=== PATIENT | male | born 1940 | race Hispanic/Latino ===

== ENCOUNTER 2021-07-11 06:23 | Observation (INO) | payer MEDICARE ==
[2021-07-11 07:26] LABS: Basophils # (Auto) 0.1 K/mm3 (0.0-0.1); Basophils % (Auto) 0.8 % (0.0-1.8); Eosinophils # (Auto) 0.3 K/mm3 (0.0-0.4); Eosinophils % (Auto) 4.5 % (0.0-4.3); Hematocrit 41.3 % (35.5-45.6); Hemoglobin 12.8 gm/dl (11.8-15.2); Lymphocytes # (Auto) 1.9 K/mm3 (1.2-5.4); Lymphocytes % (Auto) 25.9 % (13.4-35.0); Mean Corpuscular HGB Conc 31 % (32-34); Mean Corpuscular Volume 82 fl (84-94); Monocytes # (Auto) 0.7 K/mm3 (0.0-0.8); Monocytes % (Auto) 9.9 % (0.0-7.3); Platelet Count 310 K/mm3 (140-440); Red Blood Count 5.02 M/mm3 (3.65-5.03); Red Cell Distribution Width 15.1 % (13.2-15.2)
[2021-07-11 07:35] LABS: BUN/Creatinine Ratio 22; Blood Urea Nitrogen 20 mg/dL (9-20); Calcium 9.6 mg/dL (8.4-10.2); Hemolysis Index 2; INR 0.94 (0.87-1.13)
[2021-07-11 07:36] LABS: Partial Thromboplastin Time 32.5 Sec. (24.2-36.6)
[2021-07-11] MEDS ORDERED: HEPARIN/NS 5000 UNIT/500ML 1,000 ML IR ONE (08:06)
[2021-07-11] MEDS ORDERED: NITROGLYCERIN SYRINGE 3 ML ONE (08:06)
[2021-07-11] MEDS: MIDAZOLAM 2 MG/2 ML INJ ONE ×2 (08:30→09:15)
[2021-07-11] MEDS: LIDOCAINE (2%) 20 MG/1 ML VIAL 20 ML MDV INFILTRATI ONE ×2 (08:31→09:16)
[2021-07-11] MEDS: fentaNYL 100 MCG/2 ML INJ ONE ×2 (08:31→09:14)
[2021-07-11] MEDS: HEPARIN 10,000 UNITS/10 ML VIAL ONE ×3 (08:32→09:28)
[2021-07-11] MEDS: VERAPAMIL 5 MG/2 ML INJ ONE ×2 (08:32→09:17)
[2021-07-11] MEDS: SODIUM CHLORIDE 0.9% 500 ML 500 ML IV SCH ×2 (08:33→08:40)
[2021-07-11] MEDS ORDERED: ALUM-MAG HYDROXIDE-SIMETHICONE 200-200-20MG/5ML ORAL LIQD 30 ML ONE (09:31)
[2021-07-11] MEDS ORDERED: CLOPIDOGREL 300 MG TAB ONE (09:31)
[2021-07-11] MEDS ORDERED: HYDROcodone/ACETAMINOPHEN 5-325 MG TAB PO PRN (10:54)
[2021-07-11] MEDS ORDERED: ACETAMINOPHEN 325 MG TAB PO PRN (10:54)
--- NOTE | 2021-07-11 11:01 | Cardiac Catherization Report ---
DATE OF SERVICE: 07/11/2021 LEFT HEART CATHETERIZATION, INTRAVASCULAR ULTRASOUND AND PERCUTANEOUS BALLOON ANGIOPLASTY CLINICAL INFORMATION: An 81-year-old gentleman with shortness of breath with exertion with cardiac PET reveals moderate inferior wall ischemia. Has hyperlipidemia, intolerant to beta blockers or nitrates. Here for a left heart cath for persistent symptoms. Procedure was done with moderate sedation, started at 9:15, finished at 9:55, 40 minutes of moderate sedation. DESCRIPTION OF PROCEDURE: Procedure was done via the right radial artery, sterile technique and local anesthesia. A 6-Ethiopian radial sheath inserted. Left system engaged with JL3.5 catheter. Left main is large and patent with mild luminal irregularities. LAD is a medium caliber vessel, is patent; proximally to mid is patent. Mid to distal has a smooth 20% lesion. Diagonal 1 is a small to medium caliber vessel with multiple branches, are patent. Diagonal 2 is a small to medium caliber vessel that has a mid 70% lesion. Circumflex is medium caliber vessel, proximal is patent and bifurcates into an OM1, has an ostial 60%. After OM1, there is a focal 80% calcified lesion in the [place] circ. AV groove, a small to medium caliber vessels in both vessels. RCA engaged with JR4, is a large, dominant vessel. Proximal right has a focal 95% lesion, large, dominant vessel; mid to distal patent. PDA, PLV are large caliber vessels, are patent with multiple branches. LV gram done in SLOVENIAN and DRAKE view shows normal LV function. LVEDP 21 mmHg, LV is 127, aortic is 127/79. No gradient across the aortic valve on pullback. The 5-Ethiopian catheters, all taken over a guidewire. Percutaneous coronary intervention of right coronary artery: 1. Engaged the RCA with a 6-Ethiopian JR4 guiding catheter. 2. Crossed short [place] wire and ballooned with 2.5 x 12 balloon x 2 inflations. The lesion ballooned, opened easily. Unable to place an intravascular ultrasound. Used a nehemias wire with an awl star. Unable to do the intravascular ultrasound, just proximal suction noted. 3. Using the nehemias technique and deep guide placement, unable to place 4.0 x 18 stent despite multiple events, removed wires and stent, no dissection, continued JILLIAN 3 flow, reduced stenosis to 80%. A 6-Ethiopian guiding catheter taken over a guidewire. A 6-Ethiopian radial sheath was discontinued. Radial band applied. No hematoma, no bleeding. SUMMARY: Unsuccessful stenting of the proximal RCA. Balloon with a 2.5 x 12 and a 2.75 x 12 reduced the stenosis to 80%. The patient will be transferred to [place] for rotational atherectomy of RCA. Left main patent, LAD mid 20%; diagonal 1 patent; diagonal 2, 70%; circumflex, mid bifurcating ostial OM1 60%. [place] circumflex 80%, calcified. Normal LV function. The patient was loaded with Plavix. Discussed this in detail with the patient and the patient's family. TID: [id number] RECEIPT: [id number] CARLOS/PAUL/JAME CARDONA
--- NOTE | 2021-07-11 14:37 | Short Stay Summary ---
Short Stay Documentation Date of service: 07/11/21 - History H&P: obtained from office - Allergies and Medications Current Medications: Allergies chocolate flavor Allergy (Verified 07/11/21 07:00) Swelling peanut Allergy (Verified 07/11/21 07:00) Swelling Home Medications Medication Instructions Recorded Confirmed Last Taken Type Aspirin EC [Halfprin EC] 81 mg PO QDAY 07/11/21 07/11/21 07/11/21 History AtorvaSTATin [Lipitor] 20 mg PO QHS 07/11/21 07/11/21 07/11/21 History Active Medications Acetaminophen (Acetaminophen 325 Mg Tab) 650 mg PO Q4H PRN PRN Reason: Pain MILD(1-3)/Fever >100.5/ANTOINE Hydrocodone Bitart/Acetaminophen (Hydrocodone/Acetaminophen 5-325 Mg Tab) 1 each PO Q6H PRN PRN Reason: Pain, Moderate (4-6) Aspirin (Aspirin 81 Mg Tab Chew) 81 mg PO QDAY [place] Atorvastatin Calcium (Atorvastatin 20 Mg Tab) 20 mg PO QHS [place]IS Clopidogrel Bisulfate (Clopidogrel 75 Mg Tab) 75 mg PO QDAY L[place]IS Sodium Chloride (Nacl 0.9% 500 Ml) 500 mls @ 50 mls/hr IV DIRECT LEXIS Stop: 07/11/21 16:59 Last Admin: 07/11/21 08:40 Dose: 50 mls/hr - Brief post op/procedure progress note Date of procedure: 07/11/21 Pre-op diagnosis: Abnormal stress test Post-op diagnosis: other (CAD) Anesthesia: local Estimated blood loss: minimal - Hospital course Hospital course: Patient underwent cardiac cath this a.m. Unsuccessful stenting of proximal RCA balloon angioplasty. Patient will be transferred to [place] for rotational atherectomy of RCA. Plan of care discussed with patient and patient's family - Disposition Condition at discharge: Good Disposition: [facility] HOSPICE[facility] FACILITY Short Stay Discharge Plan Activity: advance as tolerated Diet: low fat, low cholesterol, low salt Wound: keep clean and dry, per your surgeon's advice Follow up with: LILIANE DUENAS DO [Primary Care Provider] - 7 Days
[2021-07-11] MEDS ORDERED: HEPARIN 10,000 UNITS/10 ML VIAL IV PRN (15:04)
[2021-07-11] MEDS ORDERED: HEPARIN/ 0.45% NACL DRIP 25,000 UNIT/500 ML BAG ONE (15:16)
[2021-07-11] MEDS ORDERED: HEPARIN/ 0.45% NACL DRIP 25,000 UNIT/500 ML BAG IV SCH (16:00)
[2021-07-11] MEDS ORDERED: HEPARIN 10,000 UNITS/10 ML VIAL IV ONE (16:00)
[2021-07-11 17:12] VITALS: BP 139/84
--- NOTE | 2021-07-12 08:55 | Electrocardiograph Report ---
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
--- NOTE | 2021-07-12 08:58 | Electrocardiograph Report ---
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
[2021-07-12] MEDS ORDERED: ASPIRIN 81 MG TAB CHEW PO SCH (10:00)
[2021-07-12] MEDS ORDERED: CLOPIDOGREL 75 MG TAB PO SCH (10:00)
== END 2021-07-11 17:30 | disposition critical access hospital (66) ==
LOC: CATHLABREC 06:23 → 4A 10:55
PROVIDERS: ADMIT Internal Medicine; ATTEND Internal Medicine
DX: I25.10 Atherosclerotic heart disease of native coronary artery without angina pectoris (principal); R94.31 Abnormal electrocardiogram [ECG] [EKG]; R94.39 Abnormal result of other cardiovascular function study; E78.5 Hyperlipidemia, unspecified; Z79.82 Long term (current) use of aspirin
CPT/HCPCS: 36415; 80048; 85025; 85610; 85730; 92920; 92978; 93005; 93010; 93458; 96365; 96366; C1725; C1753; C1769; C1874; C1887; C1894; G0378; J1644; J1815; J2250; J3010; J3490; J7040; 92928; C9600; Q9967